=== PATIENT | male | born 1980 | race American Indian/Alaskan Native ===

== ENCOUNTER 2017-08-10 12:03 | Emergency (ER) | payer SELFPAY ==
[2017-08-10 12:39] LABS: Bacteria,Urine 1+ /HPF (Negative); Bilirubin,Urine NEG (Negative); Blood,Urine NEG (Negative); Color,Urine Yellow (Yellow); Mucus,Urine FEW /HPF
[2017-08-10 12:48] LABS: Amphetamine Screen,Urine PRESUMPTIVE NEGATIVE; Benzodiazepines Screen,Urine PRESUMPTIVE NEGATIVE; Cocaine Screen,Urine PRESUMPTIVE NEGATIVE; Methadone Screen,Urine PRESUMPTIVE NEGATIVE; Opiate Screen,Urine PRESUMPTIVE NEGATIVE
[2017-08-10 13:06] LABS: Cannabinoid Screen,Urine PRESUMPTIVE POSITIVE
[2017-08-10 13:30] LABS: Basophils % (Auto) 0.3 % (0.0-1.8); Eosinophils % (Auto) 0.3 % (0.0-4.3); Hematocrit 38.9 % (35.5-45.6); Hemoglobin 12.5 gm/dl (11.8-15.2); Lymphocytes # (Auto) 1.3 K/mm3 (1.2-5.4); Lymphocytes % (Auto) 32.9 % (13.4-35.0); Mean Corpuscular HGB Conc 32 % (32-34); Mean Corpuscular Hemoglobin 27 pg (28-32); Mean Corpuscular Volume 84 fl (84-94); Monocytes # (Auto) 0.4 K/mm3 (0.0-0.8); Monocytes % (Auto) 10.3 % (0.0-7.3); Platelet Count 142 K/mm3 (140-440); Red Blood Count 4.66 M/mm3 (3.65-5.03); Red Cell Distribution Width 14.5 % (13.2-15.2)
--- NOTE | 2017-08-10 13:38 | Emergency Department Report ---
ED Medical Clearance HPI - General Chief complaint: Medical Clearance Stated complaint: Time Seen by Provider: 08/10/17 13:32 Source: patient, family, police Mode of arrival: Ambulatory Limitations: No Limitations - History of Present Illness Initial comments: Patient's complaint is of anxiety and paranoia. He states that he is not planning to harm himself nor others. Complaint: medical clearance request -: week(s) (1) Reason for Medical Clearance: psychiatric condition Alledged Intoxication: No Compliant with Home Medications: No (Has Rx dated 08/07/17 for UTI thats unfilled. ) Allergies/Adverse reactions: Allergies Allergy/AdvReac Type Severity Reaction Status Date / Time Unable to Assess Allergy Unverified 08/10/17 12:20 ED Review of Systems ROS: Stated complaint: Other details as noted in HPI Comment: All other systems reviewed and negative Constitutional: denies: chills, fever Eyes: denies: eye pain, eye discharge, vision change ENT: denies: ear pain, throat pain Respiratory: denies: cough, shortness of breath, wheezing Cardiovascular: denies: chest pain, palpitations Endocrine: no symptoms reported Gastrointestinal: denies: abdominal pain, nausea, diarrhea Genitourinary: denies: urgency, dysuria Musculoskeletal: denies: back pain, joint swelling, arthralgia Skin: denies: rash, lesions Neurological: denies: headache, weakness, paresthesias Psychiatric: as per HPI, anxiety. denies: depression, auditory hallucinations, visual hallucinations, homicidal thoughts, suicidal thoughts Hematological/Lymphatic: denies: easy bleeding, easy bruising ED Past Medical Hx - Past Medical History Previous Medical History?: Yes Hx Diabetes: Yes Hx Psychiatric Treatment: Yes - Social History Smoking Status: Unknown if ever smoked ED Physical Exam - General Limitations: No Limitations General appearance: alert, in no apparent distress - Head Head exam: Present: atraumatic, normocephalic - Eye Eye exam: Present: normal appearance - ENT ENT exam: Present: mucous membranes moist - Neck Neck exam: Present: normal inspection - Respiratory Respiratory exam: Present: normal lung sounds bilaterally. Absent: respiratory distress - Cardiovascular Cardiovascular Exam: Present: regular rate, normal rhythm. Absent: systolic murmur, diastolic murmur, rubs, gallop - GI/Abdominal GI/Abdominal exam: Present: soft, normal bowel sounds - Rectal Rectal exam: Present: deferred - Extremities Exam Extremities exam: Present: normal inspection - Back Exam Back exam: Present: normal inspection - Neurological Exam Neurological exam: Present: alert, oriented X3 - Psychiatric Psychiatric exam: Present: normal affect, normal mood, depressed, anxious. Absent: flat affect, manic, homicidal ideation, suicidal ideation - Skin Skin exam: Present: warm, dry, intact, normal color. Absent: rash ED Course Vital Signs 08/10/17 08/10/17 08/10/17 12:11 12:16 13:24 Temperature 98.1 F 98.1 F Pulse Rate 117 H 117 H Respiratory 18 18 18 Rate Blood Pressure 149/95 Blood Pressure 149/95 [Left] O2 Sat by Pulse 100 100 98 Oximetry - Reevaluation(s) Reevaluation #1: 08/10/17 15:29 Returned to room to speak with patient. His mother and are at bedside. Patient's speech is pressured and he feels something is wrong with him and he wants to go to one of two facilities located in the [place] area. He denies a psych history again. His mother denies any family history of mental illness that she knows of. Patient does not know his father's family history. When asked about the marijuana, his says she and her smoke the same marijuana while they were on vacation a week ago. Reevaluation #2: 08/10/17 19:12 Patient has been aggressive toward security and staff. He told me that he keeps hearing people whispering about him in the hallway. He left his room and staff says he was combative with security in returning him to his room. ED Medical Decision Making - Lab Data Result diagrams: 08/10/17 12:52 08/10/17 12:52 - Medical Decision Making After hearing patient's stories that lead to him coming here, along with his and mother's observation, patient will be documented as a 1013. - Differential Diagnosis Schizophrenia, Drug Induced Psychosis, Psychosis ED Disposition Clinical Impression: Psychiatric complaint Condition: Stable Referrals: TANNER GUY MD [Primary Care Provider] - 3-5 Days
[2017-08-10 13:43] LABS: BUN/Creatinine Ratio 11; Blood Urea Nitrogen 8 mg/dL (9-20); Calcium 9.2 mg/dL (8.4-10.2); Hemolysis Index 0
[2017-08-10] MEDS ORDERED: ROCEPHIN IM ONE (14:58)
[2017-08-10] MEDS ORDERED: XYLOCAINE 1% MPF 5 mL INFILTRATI ONE (14:58)
[2017-08-10] MEDS ORDERED: ATIVAN IM ONE (18:54)
[2017-08-10] MEDS ORDERED: ATIVAN ONE (18:55)
[2017-08-10] MEDS ORDERED: GEODON IM PRN (19:14)
--- NOTE | 2017-08-12 14:12 | Consultation ---
History of Present Illness - Reason for Consult Consult date: 08/12/17 Reason for consult: Mental Health Evaluation Requesting physician: Kushal SALDANA - Chief Complaint Chief complaint: "I didn't do anything wrong" - History of Present Psychiatric Illness 36 y.o. AA male presenting to [facility] for paranoia and anxiety. Today the patient is calm and cooperative during the assessment. He stated that he is having relationship issues with his and another woman. He stated that he felt different the past several days. He stated being up for 6 days "on and off" not wanting to sleep prior to coming to the hospital. He stated not ever experiencing that in the past. He stated that his anxiety and was "high" on arrival to the hospital, but cannot explain why when asked. Per the ER note, the patient was experience some paranoia. He denies recreational drug use prior to his admission, but he was positive for marijuana. He denies SI/HI's and AVH' s. He denies a poor appetite and depression. Medications and Allergies Allergies Allergy/AdvReac Type Severity Reaction Status Date / Time Unable to Assess Allergy Unverified 08/10/17 12:20 Home Medications Medication Instructions Recorded Confirmed Last Taken Type metFORMIN [Glucophage] 500 mg PO BID 08/11/17 08/11/17 Unknown History Active Meds: Active Medications Ziprasidone (Geodon) 10 mg IM Q2H PRN PRN Reason: Agitation Last Admin: 08/11/17 05:10 Dose: 10 mg Past psychiatric history - Past Medical History Past Medical History: No medical history Past Surgical History: No surgical history - past Psychiatric treatment and history psychiatric treatment history: Denies a psy hx and fam psy hx. - Social History Social history: Mental Status Exam - Vital signs Last Vital Signs Temp 97.9 F 08/11/17 21:00 Pulse 87 08/11/17 21:00 Resp 18 08/11/17 21:00 BP 145/84 08/11/17 21:00 Pulse Ox 100 08/11/17 21:00 - Exam Narrative exam: MSE: Appearance: calm, cooperative Behavior: regular eye contact Speech: regular rate and tone Mood: "okay" Affect: congruent to mood Thought Process: circumstantial Thought Content: denies SI/HI's and AVH's Motor Activity: ambulatory Cognition: A/O x 3 Insight: variable Judgment: variable Results Result Diagrams: 08/10/17 12:52 08/10/17 12:52 Abnormal lab results 08/11/17 08/12/17 Range/Units 16:13 12:46 POC Glucose 160 H 205 H (70-105) All other labs normal. Assessment and Plan Assessment and plan: Impression: Unspecified psychosis. Cannabis Use DO. Today the patient is calm and cooperative during the assessment. DDx: R/O Schizophrenia, R/O Bipolar DO, Substance Induced Psychosis Recommendation/Plan: Continue 1013 and gather collateral information to determine proper dispo. Discussed the importance to abstain from recreational drug use with patient.
[2017-08-13 09:18] VITALS: BP 110/84
--- NOTE | 2017-08-13 11:54 | Progress Note ---
Subjective - Reason for Consult Consult date: 08/13/17 Reason for consult: Psychiatry Follow-up - Chief Complaint Chief complaint: "I have to stop smoking marijuana" 36 y.o. AA male presenting to [facility] for paranoia and anxiety. Today the patient is calm and cooperative during the assessment. He stated that he must stop smoking marijuana because he has never felt mentally unstable. Per collateral information from his Humaira Muhammad at [phone], she stated that her had been smoking marijuana for several days prior to his admission to [facility]. She denies that her has a psychotic do or mood do. She denies any previous bizarre behavior in the past. She stated that she feel safe for her to return home once discharged. The patient is adamant about wanting to stop smoking marijuana. He denies SI/HI's and AVH's. Mental Status Exam - Vital signs Last Vital Signs Temp 97.9 F 08/11/17 21:00 Pulse 87 08/13/17 09:16 Resp 17 08/13/17 09:16 BP 110/84 08/13/17 09:16 Pulse Ox 100 08/13/17 09:16 - Exam Narrative exam: MSE: Appearance: calm, cooperative Behavior: regular eye contact Speech: regular rate and tone Mood: "okay" Affect: congruent to mood Thought Process: linear Thought Content: denies SI/HI's and AVH's Motor Activity: ambulatory Cognition: A/O x 3 Insight: appropriate Judgment: appropriate Assessment and Plan Impression: Unspecified psychosis. Cannabis Use DO. Today the patient is calm and cooperative during the assessment. Psychosis had resolved. DDx: R/O Schizophrenia, R/O Bipolar DO, Substance Induced Psychosis Recommendation/Plan: Rescind 1013. The patient can follow up with [facility] for rehab services. Discussed the importance to abstain from recreational drug use with patient.
[2017-08-13] MEDS ORDERED: ROCEPHIN IM ONE (13:47)
[2017-08-13] MEDS ORDERED: XYLOCAINE 1% MPF 5 mL INFILTRATI ONE (13:47)
== END 2017-08-13 14:29 | disposition home or self-care (01) ==
LOC: ED 12:03 → EEVIPCON 12:03 → ED 08-13 14:29
DX: F29 Unspecified psychosis not due to a substance or known physiological condition (principal); F41.9 Anxiety disorder, unspecified; F22 Delusional disorders; F12.10 Cannabis abuse, uncomplicated; E11.9 Type 2 diabetes mellitus without complications; Z79.899 Other long term (current) drug therapy
CPT/HCPCS: 36415; 80048; 80307; 81001; 82962; 85025; 96372; 99284; G0480; J0696; J2060; J3486; 80320